=== PATIENT | male | born 1955 | race Caucasian/White ===

== ENCOUNTER 2018-01-19 11:10 | Outpatient (CLI) | payer MEDICAID, SELFPAY ==
[2018-01-19 12:53] LABS: Anion Gap 9.4 mmol/L (3-11); BUN 21 mg/dL (7-18); CO2 28.6 mmol/L (21.0-32.0); CREATININE 1.09 mg/dL (0.70-1.30); Calcium 9.2 mg/dL (8.5-10.1); Chloride 105 mmol/L (98-107); Glucose 101 mg/dL (70-100); Sodium 143 mmol/L (136-145); Uric Acid 8.4 mg/dL (3.5-7.2)
== END 2018-01-19 11:30 ==
PROVIDERS: PCP Emergency Medicine; Visit Provider Emergency Medicine
DX: I10 Essential (primary) hypertension (principal); M10.072 Idiopathic gout, left ankle and foot
CPT/HCPCS: 36415; 80048; 84550

== ENCOUNTER 2018-09-30 11:52 | Outpatient (CLI) | payer MEDICAID, SELFPAY ==
[2018-09-30 13:32] LABS: Anion Gap 12.5 mmol/L (3-11); BUN 34 mg/dL (7-18); CO2 24.5 mmol/L (21.0-32.0); CREATININE 1.46 mg/dL (0.70-1.30); Calcium 9.4 mg/dL (8.5-10.1); Chloride 105 mmol/L (98-107); Estimated GFR 48.92 (mL/min/1.73m2); Glucose 90 mg/dL (70-100); Potassium 3.6 mmol/L (3.5-5.1); Sodium 142 mmol/L (136-145); Uric Acid 6.6 mg/dL (3.5-7.2)
== END 2018-09-30 12:12 ==
PROVIDERS: PCP Emergency Medicine; Visit Provider Emergency Medicine
DX: M10.072 Idiopathic gout, left ankle and foot (principal); M10.9 Gout, unspecified; I10 Essential (primary) hypertension
CPT/HCPCS: 36415; 80048; 84550

== ENCOUNTER 2018-10-26 11:53 | Outpatient (CLI) | payer MEDICAID, SELFPAY ==
--- NOTE | 2018-10-26 11:00 | DI.RAD_ITS ---
SYMPTOMS/DIAGNOSIS: RT TOE PAIN, IDIOPATHIC GOUT RT FOOT, M10.072, M10.9 RIGHT GREAT TOE: Three views of the great toe were obtained. There is marked soft tissue swelling around the first MTP joint and there do appear to be some small periarticular erosions of the head of the first metatarsal consistent with gout. Soft tissue calcification is also present medial to the first MTP joint. No other significant bony abnormality is seen. CONCLUSION: Findings consistent with gout as described above.
[2018-10-26 12:36] LABS: Bilirubin Negative (Negative); Blood Trace-lysed (Negative); Clarity Clear (Clear); Glucose Negative (Negative); Ketones Negative (Negative); Leukocyte Esterase Negative (Negative); Nitrite Negative (Negative); Specific Gravity 1.015 (1.005-1.025); Urobilinogen 0.2 EU/dL (Up TO 0.2)
[2018-10-26 12:39] LABS: HCT 41.5 % (40.0-50.0); HGB 13.8 g/dL (13.5-17.5); Mean Corp. HGB Concentration 33.3 g/dL (32.0-36.0); Mean Corpuscular Hemoglobin 30.8 pg (27.0-33.0); Mean Corpuscular Volume 92.6 fL (80-95); Mean Platelet Volume 9.7 fL (8.0-11.0); Platelet Count 185 x1000/uL (130-400); RBC 4.48 m/cumm (4.50-6.00); RBC Distribution Width 14.8 % (11.8-14.1)
[2018-10-26 12:51] LABS: Epithelial Cells Rare HPF (Negative); RBC 0-2 (0-2); WBC Negative HPF (0-5)
[2018-10-26 12:52] LABS: Bacteria Negative HPF (Negative); C & S Indicated? No; Casts Negative LPF (Negative); Crystals Negative HPF (Negative); Mucus Trace (Negative)
[2018-10-26 13:04] LABS: Absolute Lymphocyte Count 66.17 k/cumm (1.2-3.4); Absolute Neutrophil Count 10.12 k/cumm (1.2-6.7); White Blood Cell Count 77.85 k/cumm (4.4-10.8)
[2018-10-26 13:05] LABS: Absolute Monocyte Count 1.56 k/cumm (0.11-0.7); Diff Comment Manual Differential; RBC Morphology Normal
[2018-10-26 13:32] LABS: Anion Gap 13.1 mmol/L (3-11); BUN 29 mg/dL (7-18); CO2 24.9 mmol/L (21.0-32.0); CREATININE 1.43 mg/dL (0.70-1.30); Calcium 9.4 mg/dL (8.5-10.1); Chloride 103 mmol/L (98-107); Estimated GFR 50.11 (mL/min/1.73m2); Glucose 100 mg/dL (70-100); Potassium 4.1 mmol/L (3.5-5.1); Sodium 141 mmol/L (136-145)
[2018-10-26 14:06] LABS: ESR 26 MM/HR (1-20)
[2018-10-26 19:56] LABS: Uric Acid 5.9 mg/dL (3.5-7.2)
== END 2018-10-26 12:13 ==
PROVIDERS: PCP Emergency Medicine; Visit Provider Emergency Medicine
DX: M10.9 Gout, unspecified; R30.0 Dysuria; I10 Essential (primary) hypertension; M10.072 Idiopathic gout, left ankle and foot; R53.83 Other fatigue; M79.674 Pain in right toe(s); M79.89 Other specified soft tissue disorders
CPT/HCPCS: 36415; 80048; 85652; 73660; 81003; 81015; 84550; 85025

== ENCOUNTER 2018-10-28 08:45 | Outpatient (CLI) | payer MEDICAID, SELFPAY ==
[2018-10-28 09:14] LABS: Abs Immature Grans 0.29 k/cumm (0.0-0.09); HCT 38.8 % (40.0-50.0); HGB 12.9 g/dL (13.5-17.5); Mean Corp. HGB Concentration 33.2 g/dL (32.0-36.0); Mean Corpuscular Hemoglobin 30.9 pg (27.0-33.0); Mean Corpuscular Volume 92.8 fL (80-95); Mean Platelet Volume 9.5 fL (8.0-11.0); RBC 4.18 m/cumm (4.50-6.00); RBC Distribution Width 14.4 % (11.8-14.1)
[2018-10-28 09:51] LABS: Absolute Neutrophil Count 12.49 k/cumm (1.2-6.7); Platelet Count 197 x1000/uL (130-400); White Blood Cell Count 78.09 k/cumm (4.4-10.8)
[2018-10-28 09:52] LABS: Absolute Lymphocyte Count 64.03 k/cumm (1.2-3.4); Absolute Monocyte Count 1.56 k/cumm (0.11-0.7); Diff Comment Manual Differential; RBC Morphology Normal
[2018-11-01 08:56] LABS: Leukemia/Lymphoma by FC (Blood See Comments
[2018-11-07 08:30] LABS: Interpretation See Comments
[2018-11-07 08:33] LABS: Test Performed See Comments
[2018-11-07 08:36] LABS: Comment See Comments
[2018-11-07 08:54] LABS: Karyotype See Comments
[2018-11-07 08:59] LABS: Report See Comments
== END 2018-10-28 09:05 ==
PROVIDERS: Family Medicine; PCP Emergency Medicine; Visit Provider Emergency Medicine
DX: D72.829 Elevated white blood cell count, unspecified (principal); C91.90 Lymphoid leukemia, unspecified not having achieved remission
CPT/HCPCS: 36415; 88185; 88237; 88271; 88275; 88291; 85025; 88184; 88189

== ENCOUNTER 2019-01-20 11:24 | Outpatient (CLI) | payer MEDICAID, SELFPAY ==
[2019-01-20 12:58] LABS: Anion Gap 13.4 mmol/L (3-11); BUN 24 mg/dL (7-18); CO2 22.6 mmol/L (21.0-32.0); CREATININE 1.29 mg/dL (0.70-1.30); Calcium 8.9 mg/dL (8.5-10.1); Chloride 106 mmol/L (98-107); Estimated GFR 56.44 (mL/min/1.73m2); Glucose 105 mg/dL (70-100); Sodium 142 mmol/L (136-145)
[2019-01-23 11:01] LABS: PSA, Screening 0.3 ng/ml (0-4.5)
== END 2019-01-20 11:44 ==
PROVIDERS: PCP Emergency Medicine; Visit Provider Emergency Medicine
DX: Z00.00 Encounter for general adult medical examination without abnormal findings (principal); Z12.5 Encounter for screening for malignant neoplasm of prostate
CPT/HCPCS: 36415; 80048; 84153

== ENCOUNTER 2020-02-02 22:11 | Outpatient (REF) | payer MEDICAID, SELFPAY ==
[2020-02-02 21:30] LABS: Anion Gap 8.4 mmol/L (3-11); BUN 18 mg/dL (7-18); CO2 25.6 mmol/L (21.0-32.0); Calcium 9.5 mg/dL (8.5-10.1); Calculated LDL 83 mg/dL (<100); Chloride 107 mmol/L (98-107); Cholesterol 152 mg/dL (<200); Glucose 88 mg/dL (74-106); HDL Cholesterol 21 mg/dL (40-60); Potassium 4.3 mmol/L (3.5-5.1); Sodium 141 mmol/L (136-145); Triglyceride 241 mg/dL (<150)
[2020-02-02 21:49] LABS: Uric Acid 4.4 mg/dL (3.5-7.2)
== END 2020-02-02 22:31 ==
LOC: LBN 22:11
PROVIDERS: PCP Emergency Medicine; Visit Provider Emergency Medicine
DX: E78.5 Hyperlipidemia, unspecified (principal); I10 Essential (primary) hypertension; M10.072 Idiopathic gout, left ankle and foot
CPT/HCPCS: 80048; 80061; 84550

== ENCOUNTER 2020-02-14 02:16 | Outpatient (CLI) | payer MEDICAID, SELFPAY ==
[2020-02-14 10:07] LABS: Abs Immature Grans 0.32 10^3/uL (0.0-0.06); Basophils % 0.1; Eosinophils % 0.1; HCT 40.7 % (40.0-50.0); HGB 13.1 g/dL (13.5-17.5); Immature Grans % 0.2; MCH 30.8 pg (27.0-33.0); MCHC 32.2 % (32.0-36.0); MCV 95.5 fL (80-95); MPV 9.6 fL (8.0-11.0); Monocytes % 2.1; Neutrophils % 1.9; Nucleated RBC 0 %; RBC 4.26 10^6/uL (4.36-5.78); RDW 14.6 % (11.8-14.1); RDW-SD 50.3 fL
[2020-02-14 11:13] LABS: Absolute Basophil Count 0.21 10^3/uL (0.0-0.2); Absolute Eosinophil Count 0.21 10^3/uL (0.0-0.7); Absolute Lymphocyte Count 201.95 10^3/uL (1.2-3.4); Absolute Monocyte Count 4.44 10^3/uL (0.1-0.8); Absolute Neutrophil Count 4.01 10^3/uL (1.2-6.7); WBC 211.24 10^3/uL (4.4-10.8)
[2020-02-14 11:14] LABS: Lymphocytes % 95.6; Platelet Count 104 10^3/uL (130-400)
[2020-02-14 11:15] LABS: Diff Comment Agrees w/ Instrument; RBC Morphology Normal
== END 2020-02-14 02:36 ==
PROVIDERS: PCP Emergency Medicine; Visit Provider Internal Medicine
DX: C91.10 Chronic lymphocytic leukemia of B-cell type not having achieved remission (principal)
CPT/HCPCS: 36415; 85025

== ENCOUNTER 2020-03-17 13:15 | Emergency (ER) | payer MEDICAID, SELFPAY ==
[2020-03-17] VITALS (51 sets, daily range): BP systolic 80–118; BP diastolic 58–73; PULSE 71–127; RESP 18–34; TEMP 36.3–36.7; O2SAT 93–98
--- NOTE | 2020-03-17 13:15 | RT.EKG_ITS ---
APPROVED REPORT Exam: Resting ECG Patient Location: E HR:105 bpm ECG Measurements Heart Rate 105 AXIS MT 134 P 59 QRSd 79 QRS 62 QT 360 T -3 QTc 478 Conclusion Sinus tachycardia...rate> 99 Probable left atrial enlargement...P >50mS, <-0.10mV V1 I have reviewed and interpreted ECG and agree with software generated interpretation. No STEMI
--- NOTE | 2020-03-17 13:36 | ED.GENADUL_ITS ---
Discharge Plan Disposition Patient Disposition: [facility] Condition: Serious Discharge Details Clinical Impression: Splenic hemorrhage Primary Care Provider: Brandon Acosta ED Provider: Bret Campos Home Meds and New Rx's Prescriptions: No Action allopurinol 300 mg tablet 300 mg PO DAILY Qty: 90 RF: 3 colchicine 0.6 mg tablet 0.6 mg PO BID PRNRF: 0 amlodipine 5 mg tablet 5 mg PO DAILY Qty: 90 RF: 3 sucralfate [Carafate] 100 mg/mL suspension 5 ml PO PRN Qty: 420 RF: 3 pravastatin 10 mg tablet 10 mg PO DAILY Qty: 90 RF: 4 lisinopril 10 mg tablet 10 mg PO DAILY Qty: 90 RF: 4 nystatin 100,000 unit/mL Suspension 5 ml PO QID RF: 0 famciclovir 500 mg tablet 1 mg PO DAILY RF: 0 ibuprofen 400 mg Tablet 400 mg PO PRN PRNRF: 0 acetaminophen [Tylenol] 325 mg Tablet 1,000 mg PO PRN PRNRF: 0 Discharge Data Discharge Date/Time-TO BE ENTERED AT DEPARTURE: 03/17/20 19:40 Medical Decision Making <Ana Maria Craven - Last Filed: 03/20/20 08:25> 65-year-old male presents to the ER with chief complaint of mouth pain, abdominal fullness and groin tenderness. He has a history of CLL and has recently stopped chemotherapy treatment due to mouth sores. He has been feeling dizzy which prompted him to be seen in the ER. On initial exam he appears weak, pale blood pressure is low, he does have ecchymosis and swelling noted to the scrotum back. He denies any diarrhea or problems urinating. Denies any chest pain or shortness of breath. He has a past medical history of CLL, depression, inguinal hernia repair, idiopathic gout, hypertension, hyperlipidemia. He is alert and oriented x4. 1305: Clinical result received verbally from lab WBC count is 319.25 unable to report RBCs at this time, hemoglobin 9.4 and platelets of 141, absolute neutrophils 10.85, absolute lymphocytes 304.25, absolute monocytes 3.19 lactate 1.6, sodium 139, potassium 4.8, and anion gap 10.8, BUN 19, creatinine 1.0, GFR 38.18, glucose 204, troponin is pending at this time. Urinalysis is pending at this time Patient's oncologist at [facility] is Sadia Johansen or Jacquelyn Stevens will retrieve documents from [facility] medical records. 1434: PT changed to oral contrast only due to elevated BUN and creatinine and GFR 38 less than 40. Patient is receiving 1 L normal saline, blood pressure at this time is 88/60 ultrasound of scrotum is pending at this time will be done in approximately 1 hour. Care is to be handed off to oncoming provider ZAC Goldberg, discussed patient case in detail and pending labs, scrotal ultrasound, and CT at this time. Medical Records Medical records reviewed: Yes I reviewed the patient's medical records. Medical records narrative: [facility] records reviewed from 03/12/2020 which show a office visit with Jacquelyn Stevens APRN, the majority of the visit notes are addressing his oral lesions which are causing terrible pain, he was started on nystatin and Famvir 5 mg twice daily and then to start acyclovir 40 mg twice daily. Is also given oxycodone 5 mg tablets at that time. Additional records reviewed for a visit with Sadia Johansen MD on February 28, 2020 <ZAC Knutson - Last Filed: 03/17/20 18:45> This is a 65-year-old gentleman with a past medical history of CLL, hypertension, gout, who was signed out to me by my colleague LAURA Craven pending scrotal ultrasound, abdominal and pelvic CT with oral contrast, urinalysis, repeat troponin. Please see her initial HPI and examination. Patient was brought to ultrasound prior to me being able to physically evaluate him at shift change. I was called by ultrasound requesting a antiemetic as the patient was becoming nauseous during his scrotal ultrasound. 4 mg Zofran IV given. Thus far he has been unable to provide a urine sample, he did present tachycardic and hypotensive, I will provide him with a second liter IV fluid. I evaluated the patient once he returned from radiology. Blood pressure now 108/60, pulse in the 70s, respirations 23. He has certainly responded well to the IV fluid. Upon the patient returning from radiology he appears well, nontoxic. Patient has diffuse mild abdominal discomfort, slightly worse on the left side. There is no guarding, rebound or rigidity. Bowel sounds are normal. Back nontender, normal visual examination. Lungs clear to auscultation, heart regular rate and rhythm. The scrotum reveals diffuse ecchymosis, minimal swelling, nontender. No skin lesions. Patient still unable to provide a urine sample. Patient will be given a 3rd L of fluid, now lactated Ringer's. I received a call from virtual radiology regarding his imaging. Chest x-ray shows no acute cardiopulmonary process. The CT imaging reveals a marked splenomegaly with heterogeneous parenchymal density and perisplenic blood tracking into the pelvis. Mild perihepatic ascites and a combination of fluid tracks in the right inguinal hernia into the scrotum. Scrotal wall edema with right scrotal hematocele. Mild pelvic lymphadenopathy. Small bilateral aspirations in the visualized lung base, left greater than right. Scrotal ultrasound shows increased blood flow to both testicular parenchyma suggestive of epididymal orchitis given the recent CT findings of CLL related splenomegaly and hemoperitoneum, the constellation of findings in the right scrotum reflect abdominal fat containing right inguinal hernia with migration of fat and blood- ascites into the right hemiscrotum, and less likely represents infectious or vascular cause of hyperemia. No evidence of torsion. Incidental bilateral small epididymal head cyst and left varicocele. Given the CT findings, I did add on coag studies, type and cross, and I had a call placed out to our surgical team, Dr. Clarke. In the meantime we did establish a second large-bore IV. I was able to speak with Dr. Clarke who felt as though given the patient has CLL, is followed at [facility], he is likely better served being transferred to a higher level of care. Called with him placed out to [facility]. I discussed the case with Dr. Ledesma, surgery. He is happy to accept care at the patient and recommend an ER to ER transfer. I did let him know that the labs were pending, the type and screen were pending, and we would initiate irradiated packed red blood cells as soon as we could. Upon reviewing his labs, his hemoglobin was 11.7 on 03-06, now at 9.3. Given he has had a drop in his hemoglobin of over 2 points, has an active bleed, will initiate blood products. I did obtain verbal consent to give patient packed blood cells. Patient appears more stable than when he presented although his blood pressure does remain soft. He is becoming increasingly anxious, he will be given 1 mg IV Ativan. All appropriate transfer paperwork completed. I did speak with the patient's daughter regarding his diagnosis and need for transfer. Medical Records Medical records reviewed: Yes I reviewed the patient's medical records. Lab Data Lab results reviewed: Yes I reviewed the patient's lab results. Lab results narrative: Laboratory Tests Range/Units 03/17/20 03/17/20 03/17/20 13:40 13:40 13:40 WBC (4.4-10.8) 10^3/uL 319.25 H* RBC (4.36-5.78) 10^6/uL Hgb (13.5-17.5) g/dL 9.3 L Hct Not Applicable MCV Not Applicable MCH Not Applicable MCHC Not Applicable RDW Not Applicable Plt Count (130-400) 10^3/uL 138 MPV (8.0-11.0) fL 9.8 Immature Gran % 0.3 Neutrophils % 3.4 Lymphocytes % 95.3 Monocytes % 1.0 Eosinophils % 0.0 Basophils % 0.0 Nucleated RBC % % 0 Absolute Neutrophils (1.2-6.7) 10^3/uL 10.85 H Absolute Lymphocytes (1.2-3.4) 10^3/uL 304.25 H Absolute Monocytes (0.1-0.8) 10^3/uL 3.19 H Absolute Eosinophils (0.0-0.7) 10^3/uL 0.00 Absolute Basophils (0.0-0.2) 10^3/uL 0.00 RBC Morphology See below Hypochromasia 2+ Anisocytosis 2+ PT (9.3-11.0) sec INR (0.9-1.1) APTT VBG Lactate (0.6-1.4) mmol/L 1.6 H Sodium (136-145) mmol/L 139 Potassium (3.5-5.1) mmol/L 4.8 Chloride (98-107) mmol/L 105 Carbon Dioxide (21.0-32.0) mmol/L 23.2 Anion Gap (3-11) mmol/L 10.8 BUN (7-18) mg/dL 19 H Creatinine (0.70-1.30) mg/dL 1.80 H Estimated GFR/1.73 m2 (mL/min/1.73m2) 38.18 Glucose (74-106) mg/dL 204 H Calcium (8.5-10.1) mg/dL 8.6 Magnesium (1.8-2.4) mg/dL 1.8 Total Bilirubin (0.2-1.0) mg/dL 0.9 AST (15-37) U/L 41 H ALT (16-63) U/L 21 Alkaline Phosphatase (46-116) U/L 99 Troponin I (<0.06) ng/mL < 0.05 Total Protein (6.4-8.2) g/dL 6.6 Albumin (3.4-5.0) g/dL 3.6 Crossmatch Range/Units 03/17/20 03/17/20 03/17/20 13:40 16:35 18:05 WBC (4.4-10.8) 10^3/uL RBC (4.36-5.78) 10^6/uL Hgb (13.5-17.5) g/dL Hct MCV MCH MCHC RDW Plt Count (130-400) 10^3/uL MPV (8.0-11.0) fL Immature Gran % Neutrophils % Lymphocytes % Monocytes % Eosinophils % Basophils % Nucleated RBC % % Absolute Neutrophils (1.2-6.7) 10^3/uL Absolute Lymphocytes (1.2-3.4) 10^3/uL Absolute Monocytes (0.1-0.8) 10^3/uL Absolute Eosinophils (0.0-0.7) 10^3/uL Absolute Basophils (0.0-0.2) 10^3/uL RBC Morphology Hypochromasia Anisocytosis PT (9.3-11.0) sec 10.3 INR (0.9-1.1) 1.0 APTT Cancelled VBG Lactate (0.6-1.4) mmol/L Sodium (136-145) mmol/L Potassium (3.5-5.1) mmol/L Chloride (98-107) mmol/L Carbon Dioxide (21.0-32.0) mmol/L Anion Gap (3-11) mmol/L BUN (7-18) mg/dL Creatinine (0.70-1.30) mg/dL Estimated GFR/1.73 m2 (mL/min/1.73m2) Glucose (74-106) mg/dL Calcium (8.5-10.1) mg/dL Magnesium (1.8-2.4) mg/dL Total Bilirubin (0.2-1.0) mg/dL AST (15-37) U/L ALT (16-63) U/L Alkaline Phosphatase (46-116) U/L Troponin I (<0.06) ng/mL Cancelled Total Protein (6.4-8.2) g/dL Albumin (3.4-5.0) g/dL Crossmatch See Detail HPI <Ana Maria Craven - Last Filed: 03/20/20 08:25> General Mode of arrival: wheelchair . Date/Time Provider Initiated Documentation: 03/17/20 13:16 . Limitations to Documentation: no limitations . Information obtained by: patient . HPI Narrative: 65-year-old male presents to the ER with chief complaint of mouth pain, abdominal fullness and groin tenderness. He has a history of CLL and has recently stopped chemotherapy treatment due to mouth sores. He has been feeling dizzy which prompted him to be seen in the ER. On initial exam he appears weak, pale blood pressure is low, he does have ecchymosis and swelling noted to the scrotum back. He denies any diarrhea or problems urinating. Denies any chest pain or shortness of breath. He has a past medical history of CLL, depression, inguinal hernia repair, idiopathic gout, hypertension, hyperlipidemia. He is alert and oriented x4. Related Data Home Medications Medication Instructions Recorded Confirmed allopurinol 300 mg tablet 300 mg PO DAILY #90 tab 09/01/19 03/17/20 pravastatin 10 mg tablet 10 mg PO DAILY #90 tab-cap 09/11/19 03/17/20 lisinopril 10 mg tablet 10 mg PO DAILY #90 tab-cap 10/04/19 03/17/20 amlodipine 5 mg tablet 5 mg PO DAILY #90 tab 11/29/19 03/17/20 sucralfate 100 mg/mL oral 5 ml PO PRN #420 ml 11/29/19 03/17/20 suspension colchicine 0.6 mg tablet 0.6 mg PO BID PRN tab 02/02/20 03/17/20 acetaminophen [Tylenol] 1,000 mg PO PRN PRN 03/17/20 03/17/20 famciclovir 1 mg PO DAILY 03/17/20 03/17/20 ibuprofen 400 mg PO PRN PRN 03/17/20 03/17/20 nystatin 5 ml PO QID 03/17/20 03/17/20 Previous Rx's Medication Instructions Recorded allopurinol 300 mg tablet 300 mg PO DAILY #90 tab 09/01/19 pravastatin 10 mg tablet 10 mg PO DAILY #90 tab-cap 09/11/19 lisinopril 10 mg tablet 10 mg PO DAILY #90 tab-cap 10/04/19 amlodipine 5 mg tablet 5 mg PO DAILY #90 tab 11/29/19 sucralfate 100 mg/mL oral 5 ml PO PRN #420 ml 11/29/19 suspension Allergies Allergy/AdvReac Type Severity Reaction Status Date / Time No Known Allergies Allergy Verified 03/17/20 13:34 General Stated Complaint: Dizzy/Sync LAMONTE: 2 Review of Systems <Ana Maria Craven - Last Filed: 03/20/20 08:25> Narrative: Constitutional: Negative for weight loss, alert and oriented, well groomed, normal body habitus, appears comfortable. HEENT: Denies trauma, headaches, blurry vision, nasal discharge, sore throat, trouble swallowing. Chest: Denies chest pain, palpitations, irregular rhythm, hypertension. Respiratory: Denies Shortness of breath, cough, hemoptysis. GI: Denies abdominal pain, nausea, vomiting, diarrhea, constipation. : Denies dysuria, hematuria, flank pain, rectal bleeding. Neuro: Denies dizziness, blurry vision, weakness, syncope, headache or facial numbness. Hematologic: Denies easy bruising, intolerance to heat or cold, hair loss. [facility] <Ana Maria Craven - Last Filed: 03/20/20 08:25> Medical History Colonoscopy refused Surgical History Repair of inguinal hernia left Family History Father , age71 Essential hypertension Heart disease Myocardial infarction Mother , 99 No problems noted. Sister No problems noted. Brother No problems noted. Sister No problems noted. Brother No problems noted. Daughter No problems noted. Daughter No problems noted. Maternal Grandfather No problems noted. Paternal Grandfather No problems noted. Maternal Grandmother No problems noted. Paternal Grandmother No problems noted. Social History Smoking/Tobacco Use Status: Never Smoking risk assessment performed?: Yes Alcohol Intake: never Drug use: Never Substance use type: does not use Caregiver/Support person: No Household members: none Housing: house Communication Needs: None Do you need help understanding health information?: Rarely Sexually active: No Do you think of yourself as: straight/heterosexual Current gender identity: male What is your relationship status?: How often do you talk on the phone with friends or family?: three or more times per week How often do you get together with friends or relatives?: three or more times per week How often do you attend faith or uatsdin services?: 1-3 times per year Do you belong to any clubs or organized social groups?: no Panel score (0-1 are the most socially isolated patients): 1 What type of physical activity do you participate in: bicycling Duration: 45-60 minutes/day Frequency: 5-6 times per week Adina/Sikhism: Rastafari Special adina needs: No Seatbelt use: always Helmet use: Yes Helmet use: always Drive intox or ride w/intox bulk delivery driver: No Do you feel safe at home: Yes Do you feel safe in your relationship?: Yes Exam <Ana Maria Craven - Last Filed: 03/20/20 08:25> Narrative Exam Narrative: Constitutional: Alert and oriented x3. Appears stated age. Normal body habitus. Head: Normocephalic, no trauma. Eyes: Pupils PERRLA, Red reflex noted, EOM's intact. Eyelids symmetrical without lesions, discharge, or swelling. ENT: Bilateral TM's WNL, External ear normal to inspection, no mastoid TTP, swelling, or erythema, Nasal turbinates WNL, no nasal discharge. Normal dentition, Posterior pharynx WNL, no exudate. Chest: RRR, Normal S1, S2, distal pulses intact. Hypotensive at a 80/63. Tachycardic at 123. Resp: Lungs clear to auscultation bilaterally, no wheezes, rales, or rhonchi. GI: Soft nondistended nontender to palpation all 4 quadrants. : Swollen scrotum noted with ecchymosis denies any recent injuries or trauma. Musculoskeletal: Normal gait, 5/5 strength to all four extremities. Skin: No suspicious rashes or lesions. Capillary refill less than 2 sec. Neurologic: Cranial nerves II-XII intact. Alert and oriented x 3. DTR's intact. Hematologic/Lymphatic: No ecchymosis, no lymphadenopathy. Course <Ana Maria Craven - Last Filed: 03/20/20 08:25> Vital Signs Vital signs: Vital Signs Temperature 36.3 C L 03/17/20 13:25 Pulse 123 H 03/17/20 13:25 Blood Pressure 80/63 L 03/17/20 13:25 Pulse Oximetry 95 03/17/20 13:25 Temperature 36.3 C L 03/17/20 13:25 Pulse 123 H 03/17/20 13:25 Respiratory Effort 03/17/20 13:32 Blood Pressure 80/63 L 03/17/20 13:25 Blood Pressure Position Sitting 03/17/20 13:25 Pulse Oximetry 95 03/17/20 13:25 Oxygen Delivery Method Room Air 03/17/20 13:25 Oxygen Flow Rate 0 03/17/20 13:25 <ZAC Knutson - Last Filed: 03/17/20 18:45> Critical Care Time Critical Care Time: Yes Total Critical Care Time: 45 Attestation: Upon my evaluation, this patient had a high probability of clini daryl significant, life-threatening deterioration due to their current medical conditions, which required my direct attention, intervention, and personal management. I have personally provided greater than 30 minutes of critical care time exclusive of the time spend on separately billable procedures. Time includes obtaining a history, examining the patient, pulse oximetry, review of laboratory data, radiology results, discussion with consultants, arranging urgent treatment with development of a management plan, evaluation of patient's response to treatment, and monitoring for potential decompensation. Interventions were performed as documented above. Sign Out <Ana Maria Craven - Last Filed: 03/20/20 08:25> Sign Out Data: Sign Out Comment: Pending US scrotum, CT abd/pelvis, Chest Xray results. May need consult with oncology. Last updated by Ana Maria Craven at 03/17/20 15:32
[2020-03-17] MEDS: Normal Saline 1,000 ML 1000 ML IV ×2 (13:40→16:08)
--- NOTE | 2020-03-17 13:45 | DI.US_ITS ---
EXAM: US SCROTUM CLINICAL HISTORY: Swelling, ecchymosis. TECHNIQUE: Scrotal ultrasound performed using grayscale, color-flow and spectral Doppler analysis. COMPARISON: No exams were available for comparison FINDINGS: Right testicle: 3.3 x 2.3 x 2.7 cm Echogenicity: Normal. Contour: Smooth. Mass: None seen. Microlithiasis: None. Hydrocele: There is a large right hydrocele measuring 3.2 x 1.8 x 2.0 cm. There is swelling and gagan a in the right scrotal wall. There is a fat containing right inguinal hernia. Variocele: None. Hernia: No peristalsing bowel loop identified. Epididymis: 0.4 x 0.2 x 0.3 cm right epididymal head cyst. Left testicle: 2.5 x 1.4 x 2.2 cm Echogenicity: Normal. Contour: Smooth. Mass: None seen. Microlithiasis: None. Hydrocele: None. Variocele: Small left varicocele. Hernia: No peristalsing bowel loop identified. Epididymis: 0.4 x 0.2 x 0.3 cm simple epididymal head cyst. DOPPLER: Color: Increased blood flow to both testicles suggesting epididymal orchitis. Duplex: Bilateral testicular arterial waveforms visualized. IMPRESSION: 1. Increased bilateral testicular blood flow suggesting epididymal orchitis. 2. Edema and swelling in the right scrotal soft tissues with a fat and fluid containing right inguina l hernia. DATA REPOSITORY:
[2020-03-17 13:53] LABS: Lactate 1.6 mmol/L (0.6-1.4)
[2020-03-17 13:55] LABS: Abs Immature Grans 1.07 10^3/uL (0.0-0.06); HGB 9.3 g/dL (13.5-17.5); Immature Grans % 0.3; MPV 9.8 fL (8.0-11.0); Neutrophils % 3.4; Nucleated RBC 0 %; Platelet Count 138 10^3/uL (130-400)
[2020-03-17 14:12] LABS: ALT 21 U/L (16-63); AST 41 U/L (15-37); Albumin 3.6 g/dL (3.4-5.0); Alkaline Phosphatase 99 U/L (46-116); Anion Gap 10.8 mmol/L (3-11); BUN 19 mg/dL (7-18); Bilirubin, Total 0.9 mg/dL (0.2-1.0); CO2 23.2 mmol/L (21.0-32.0); Calcium 8.6 mg/dL (8.5-10.1); Chloride 105 mmol/L (98-107); Estimated GFR 38.18 (mL/min/1.73m2); Glucose 204 mg/dL (74-106); Magnesium 1.8 mg/dL (1.8-2.4); Potassium 4.8 mmol/L (3.5-5.1); Sodium 139 mmol/L (136-145); Total Protein 6.6 g/dL (6.4-8.2)
[2020-03-17 14:13] LABS: Troponin I < 0.05 ng/mL (<0.06)
[2020-03-17 14:27] LABS: Absolute Monocyte Count 3.19 10^3/uL (0.1-0.8); Absolute Neutrophil Count 10.85 10^3/uL (1.2-6.7); WBC 319.25 10^3/uL (4.4-10.8)
[2020-03-17 14:30] LABS: Lymphocytes % 95.3
--- NOTE | 2020-03-17 14:30 | DI.CT_ITS ---
EXAM: CT ABDOMEN PELVIS WO CLINICAL HISTORY: Abdominal fullness,. TECHNIQUE: Imaging Protocol: Axial computed tomography images with coronal and sagittal reformatted images were created and reviewed. COMPARISON: No exams were available for comparison FINDINGS: ABDOMEN: Lung Bases: Bilateral basilar infiltrates and tiny right pleural effusion. Small hiatal hernia. Liver: Normal density. No measurable mass. Gallbladder and biliary tract: No radiodense calculus or biliary ductal dilation. Pancreas: Normal density, no abnormal calcifications or inflammatory process. Spleen: The spleen measures 21.8 cm. Kidneys: Normal size, contour and axis.No radiodense stones or obstructive uropathy. No masses seen. Adrenal glands: No mass is seen. Lymph nodes: Bilateral enlarged external iliac and inguinal lymph nodes. The largest is on the right and measures 1.3 cm. Abdominal Aorta: Abdominal portion non-dilated. PELVIS: Bladder:Symmetric distention, no gross wall thickening. Bowel: No obstruction or bowel wall thickening. No evidence of acute appendicitis. Colonic diverticu losis but no evidence of acute diverticulitis. Peritoneal cavity: Small amount of abdominal pelvic ascites. Reproductive organs: Within normal limits. Bones: Degenerative changes in the spine. Left L5 spondylolysis but no significant spondylolisthesis . Soft Tissues: There is a fat and fluid containing right inguinal hernia into the scrotum. There is e amilcar seen in the soft tissues of the scrotum. IMPRESSION: 1. Marked splenomegaly. 2. Abdominal and pelvic ascites which tracks into the right scrotum. There is a fat and fluid contai qian right inguinal hernia extending into the scrotal sac. 3. There is scrotal wall edema and right scrotal him at a seal. 4. Mild pelvic lymphadenopathy. 5. Bilateral basilar infiltrates left greater than right and small left pleural effusion. RADIATION DOSE DELIVERED: 1,291.29mGy.cm Total DLP DATA REPOSITORY: All CT scans at this facility are submitted to the National Radiology Data Registry (NRDR) Dose Index Registry (DIR) with the [employer] (ACR). RADIATION OPTIMIZATION: All CT scans at this facility use at least one of these dose optimization te chniques: automated exposure control; mA and/or kV adjustment per patient size (includes targeted exa ms where dose is matched to clinical indication); or iterative reconstruction.
[2020-03-17 14:31] LABS: Anisocytosis 2+; Diff Comment Agrees w/ Instrument; Hypochromasia 2+
[2020-03-17] MEDS: Omnipaque 350 MG/ML 50 ML BTL IJ (15:14)
[2020-03-17] MEDS: Ondansetron 4 MG/2 ML VIAL IVP (16:45)
--- NOTE | 2020-03-17 17:19 | DI.RAD_ITS ---
EXAM: XR CHEST 2V PA LATERAL CLINICAL HISTORY: Dizzy TECHNIQUE: 2D digital imaging was performed. COMPARISON: No exams were available for comparison FINDINGS: MEDIASTINUM: Normal. HEART: Normal. PULMONARY VASCULATURE: Normal. LUNGS: Clear. PLEURAL SPACE: No pleural effusion or pneumothorax. BONE:Within normal limits for the patient's age. OTHER FINDINGS:Splenomegaly. IMPRESSION: 1. No acute pulmonary findings. 2. Splenomegaly. DATA REPOSITORY: RADIATION DOSE DELIVERED:
--- NOTE | 2020-03-17 17:32 | DI.VRAD_ITS ---
PROCEDURE INFORMATION: Exam: CT Abdomen And Pelvis Without Contrast Exam date and time: 03/17/2020 5:06 PM Age: 65 years old Clinical indication: Bloating TECHNIQUE: Imaging protocol: Computed tomography of the abdomen and pelvis without contrast. COMPARISON: Scrotal ultrasound of 03/17/2020. FINDINGS: Lungs: Small bilateral lower lobe consolidations, left greater than right suggestive of aspirations. Mediastinal space: Small hiatal hernia. Liver: Normal. No mass. Gallbladder and bile ducts: Normal. No calcified stones. No ductal dilation. Pancreas: Normal. No ductal dilation. Spleen: Markedly enlarged spleen measuring 21.5 cm. Heterogeneous internal hypodensities with some areas of hyperdensity suggestive of infarct and/or hemorrhage. Small volume perihepatic and perisplenic ascites. The density of the perisplenic ascites reflects hemorrhage. Fluid tracks minimally into the pelvis along with the left perihepatic ascites. Adrenal glands: Normal. No mass. Kidneys and ureters: Normal. No hydronephrosis. Stomach and bowel: Sigmoid diverticula without evidence of acute diverticulitis. Appendix: No evidence of appendicitis. Intraperitoneal space: Mild left hemoperitoneum. Vasculature: Unremarkable. No abdominal aortic aneurysm. Lymph nodes: No retroperitoneal lymphadenopathy. However, there are multiple enlarged pelvic lymph nodes. For example, right external iliac lymphadenopathy measures 1.2 cm near the right medial acetabulum on series 2, image 76. Larger right anterior external lymphadenopathy measures 1.3 cm on image 78. Urinary bladder: Unremarkable as visualized. Reproductive: Unremarkable as visualized. Bones/joints: Unremarkable. No acute fracture. Soft tissues: Small bilateral inguinal hernias, right greater than left with dense fluid tracking into the scrotum. IMPRESSION: 1. Marked splenomegaly with heterogeneous parenchymal density and perisplenic blood tracking into the pelvis. Mild perihepatic ascites and a combination of fluid tracks to the right inguinal hernia into the scrotum. Scrotal wall edema with right scrotal hematocele. 2. Mild pelvic lymphadenopathy. 3. Small bilateral aspirations in the visualized lung bases, left greater than right. The study was personally discussed on the telephone with Bret Campos PA-C, on 03/17/2020 5:29 PM EST. The results were understood and acknowledged. Dictated and Authenticated by: Rubio Gonzales MD. Ordering:AMARILIS Rodgers MD
--- NOTE | 2020-03-17 17:42 | DI.VRAD_ITS ---
PROCEDURE INFORMATION: Exam: US Scrotum Exam date and time: 03/17/2020 5:03 PM Age: 65 years old Clinical indication: Swelling, testicles or scrotum; Scrotum pain; Patient HX: PT was dx w/ leukemia. PT diagnosed with cll TECHNIQUE: Imaging protocol: Real-time ultrasound of the scrotum and contents with color Doppler and image documentation. COMPARISON: Noncontrast CT abdomen and pelvis of 03/17/2020. FINDINGS: Right testicle: The right testicle measures 3.3 x 2.3 x 2.7 cm. Small adjacent epididymal cyst measuring 7 x 7 mm. Left testicle: The left testicle measures 2.5 x 1.4 x 2.2 cm. Increased vascular flow to the bilateral testicular parenchyma suggestive of epididymo-orchitis. Epididymides: Right epididymis measures 1.2 x 1.0 x 0.8 cm. Right epididymal head cyst measuring 3 x 4 x 2 mm. Left epididymis measures 0.9 x 0.8 x 0.8 cm. Incidental small left epididymal head cyst measuring 3 mm x 4 mm x 2 mm. Scrotum: Large right hydrocele measuring 3.2 x 1.8 x 2.0 cm. Right scrotal wall swelling and edema. Fat containing inguinal hernia with echogenic fat within the right scrotum. Incidental small left varicocele. IMPRESSION: 1. Increased blood flow to both testicular parenchyma suggestive of epididymo-orchitis. Given the recent CT findings of CLL related splenomegaly and hemoperitoneum, the constellation of findings in the right scrotum reflect abdominal fat containing right inguinal hernia with migration of fat and blood/ascites into the right hemiscrotum, and less likely represents infectious or vascular cause of hyperemia. 2. No evidence for torsion. 3. Incidental bilateral small epididymal head cysts and left varicocele. Dictated and Authenticated by: Rubio Gonzales MD. Ordering:AMARILIS Rodgers MD
--- NOTE | 2020-03-17 17:51 | DI.VRAD_ITS ---
PROCEDURE INFORMATION: Exam: XR Chest, 2 Views Exam date and time: 03/17/2020 5:20 PM Age: 65 years old Clinical indication: Other: Dizziness TECHNIQUE: Imaging protocol: XR of the chest Views: 2 views. COMPARISON: CT abdomen pelvis of 03/17/2020. FINDINGS: Lungs: The lungs are clear without opacity or suspicious parenchymal finding. Pleural space: Unremarkable. No pleural effusion. No pneumothorax. Heart/Mediastinum: Unremarkable. No cardiomegaly. Bones/joints: Unremarkable. Gastrointestinal tract: Splenomegaly with shift of the splenic flexure of the colon to near midline. IMPRESSION: 1. No acute cardiopulmonary process. 2. Splenomegaly. Please refer to separate CT abdomen pelvis report of the same day. Dictated and Authenticated by: Rubio Gonzales MD. Ordering:AMARILIS Rodgers MD
[2020-03-17] MEDS: Lactated Ringers 1,000 ML 1000 ML IV (18:30)
[2020-03-17 18:33] LABS: Prothrombin Time 10.3 sec (9.3-11.0)
[2020-03-17] MEDS: Magic Mouthwash 119 ML BTL MM (18:47)
[2020-03-17] MEDS: LORazepam 2 MG/ML VIAL 1 MG IVP (18:51)
[2020-03-17 19:53] LABS: Bilirubin Negative (Negative); Blood Large (Negative); Clarity Cloudy (Clear); Glucose Negative (Negative); Ketones 15 mg/dL (Negative); Leukocyte Esterase Negative (Negative); Nitrite Negative (Negative); Specific Gravity >= 1.030 (1.005-1.025); Urobilinogen 0.2 EU/dL (Up TO 0.2); pH 5.5 (5-8)
[2020-03-17 20:09] LABS: Bacteria Negative HPF (Negative); C & S Indicated? No; Casts 20-50 Hyaline LPF (Negative); Crystals Few Amorphous HPF (Negative); Epithelial Cells Negative HPF (Negative); Mucus Moderate (Negative); RBC >50 HPF (0-2)
== END 2020-03-17 19:40 | disposition short-term general hospital (02) ==
PROVIDERS: Registered Nurse Emergency; Emergency Provider Physician Assistant; PCP Emergency Medicine
DX: D73.5 Infarction of spleen (principal); K13.79 Other lesions of oral mucosa; C91.10 Chronic lymphocytic leukemia of B-cell type not having achieved remission; Z79.899 Other long term (current) drug therapy; N50.89 Other specified disorders of the male genital organs; R10.12 Left upper quadrant pain; R93.5 Abnormal findings on diagnostic imaging of other abdominal regions, including retroperitoneum; I10 Essential (primary) hypertension
CPT/HCPCS: 36415; 36430; 51703; 80053; 86850; 86900; 86901; 86920; 86945; 93005; 96361; 96374; 96375; 99291; 71046; 74176; 76870; 81003; 81015; 83605; 83735; 84484; 85025; 85610; 85730; 93010; J2060; J2405; P9016; Q9967

== ENCOUNTER 2020-03-27 01:25 | Outpatient (RCR) | payer MEDICAID, SELFPAY ==
[2020-03-06 11:35] LABS: HGB 11.7 g/dL (13.5-17.5); MPV 9.4 fL (8.0-11.0); Nucleated RBC 0 %
[2020-03-06 12:16] LABS: Absolute Neutrophil Count 5.41 10^3/uL (1.2-6.7)
[2020-03-06 12:22] LABS: Platelet Count 128 10^3/uL (130-400)
[2020-03-06 12:23] LABS: Anisocytosis 3+; Diff Comment Manual Differential; Macrocytosis 3+; Microcytosis 1+
[2020-03-06 12:24] LABS: Poikilocytes 2+
[2020-03-06 12:29] LABS: ALT 16 U/L (16-63); AST 25 U/L (15-37); Albumin 4.5 g/dL (3.4-5.0); Alkaline Phosphatase 125 U/L (46-116); BUN 23 mg/dL (7-18); Bilirubin, Total 2.4 mg/dL (0.2-1.0); CREATININE 1.33 mg/dL (0.70-1.30); Chloride 105 mmol/L (98-107); Estimated GFR 54.13 (mL/min/1.73m2); Glucose 95 mg/dL (74-106); Potassium 4.6 mmol/L (3.5-5.1); Sodium 139 mmol/L (136-145); Total Protein 7.7 g/dL (6.4-8.2)
[2020-03-06 12:41] LABS: Uric Acid 5.6 mg/dL (3.5-7.2)
[2020-03-06] MEDS: Normal Saline 1,000 ML 500 ML IV (12:45)
[2020-03-06] MEDS: Normal Saline Flush 10 ML SYR IVP (14:59)
[2020-03-27 12:12] LABS: Abs Immature Grans 0.79 10^3/uL (0.0-0.06); Basophils % 0.1; Eosinophils % 0.2; HGB 9.3 g/dL (13.5-17.5); Immature Grans % 0.6; MCH 29.4 pg (27.0-33.0); MCV 98.1 fL (80-95); MPV 8.9 fL (8.0-11.0); Monocytes % 1.5; Neutrophils % 10.9; Nucleated RBC 0 %; RBC 3.16 10^6/uL (4.36-5.78); RDW 14.8 % (11.8-14.1); RDW-SD 51.3 fL
[2020-03-27 12:22] LABS: ALT 71 U/L (16-63); AST 67 U/L (15-37); Albumin 2.9 g/dL (3.4-5.0); Alkaline Phosphatase 164 U/L (46-116); Anion Gap 8.5 mmol/L (3-11); BUN 18 mg/dL (7-18); Bilirubin, Total 1.5 mg/dL (0.2-1.0); CO2 22.5 mmol/L (21.0-32.0); CREATININE 1.03 mg/dL (0.70-1.30); Calcium 8.8 mg/dL (8.5-10.1); Chloride 107 mmol/L (98-107); Glucose 101 mg/dL (74-106); Potassium 4.1 mmol/L (3.5-5.1); Sodium 138 mmol/L (136-145); Total Protein 7.2 g/dL (6.4-8.2); Uric Acid 3.8 mg/dL (3.5-7.2)
[2020-03-27 12:50] LABS: Absolute Basophil Count 0.13 10^3/uL (0.0-0.2); Absolute Eosinophil Count 0.26 10^3/uL (0.0-0.7); Absolute Lymphocyte Count 112.72 10^3/uL (1.2-3.4); Absolute Monocyte Count 1.95 10^3/uL (0.1-0.8)
[2020-03-27 12:52] LABS: Lymphocytes % 86.7
[2020-03-27 12:53] LABS: Diff Comment Manual Differential; Polychromasia Present
[2020-03-27 12:54] LABS: Poikilocytes 1+
[2020-03-27 13:00] LABS: Absolute Neutrophil Count 14.17 10^3/uL (1.2-6.7); Platelet Count 842 10^3/uL (130-400); WBC 130.01 10^3/uL (4.4-10.8)
== END 2020-04-01 23:59 | disposition home or self-care (01) ==
LOC: INF 01:25
PROVIDERS: Internal Medicine; PCP Emergency Medicine; Visit Provider Nurse Practitioner Acute Care
DX: C91.10 Chronic lymphocytic leukemia of B-cell type not having achieved remission (principal); E86.0 Dehydration
CPT/HCPCS: 36415; 80053; 96360; 96361; 84550; 85025

== ENCOUNTER 2020-07-31 11:05 | Outpatient (REF) | payer MEDICAID, SELFPAY ==
[2020-07-31 13:35] LABS: Abs Immature Grans 0.03 10^3/uL (0.0-0.06); Absolute Basophil Count 0.03 10^3/uL (0.0-0.2); Absolute Eosinophil Count 0.01 10^3/uL (0.0-0.7); Absolute Lymphocyte Count 0.99 10^3/uL (1.2-3.4); Absolute Monocyte Count 1.21 10^3/uL (0.1-0.8); Absolute Neutrophil Count 7.52 10^3/uL (1.2-6.7); Basophils % 0.3; Eosinophils % 0.1; HCT 47.1 % (40.0-50.0); HGB 15.2 g/dL (13.5-17.5); Immature Grans % 0.3; Lymphocytes % 10.1; MCH 29.4 pg (27.0-33.0); MCHC 32.3 % (32.0-36.0); MCV 91.1 fL (80-95); MPV 9.6 fL (8.0-11.0); Monocytes % 12.4; Neutrophils % 76.8; Nucleated RBC 0 %; Platelet Count 392 10^3/uL (130-400); RBC 5.17 10^6/uL (4.36-5.78); RDW 15.1 % (11.8-14.1); RDW-SD 50.7 fL; WBC 9.79 10^3/uL (4.4-10.8)
[2020-07-31 13:55] LABS: ALT 111 U/L (16-63); AST 68 U/L (15-37); Albumin 3.8 g/dL (3.4-5.0); Alkaline Phosphatase 105 U/L (46-116); Anion Gap 4.2 mmol/L (3-11); BUN 15 mg/dL (7-18); Bilirubin, Total 0.8 mg/dL (0.2-1.0); CO2 26.8 mmol/L (21.0-32.0); CREATININE 1.2 mg/dL (0.70-1.30); Calcium 9.7 mg/dL (8.5-10.1); Chloride 104 mmol/L (98-107); Glucose 110 mg/dL (74-106); Potassium 4.2 mmol/L (3.5-5.1); Sodium 135 mmol/L (136-145); TSH 1.84 uIU/mL (0.36-3.74); Total Protein 7.5 g/dL (6.4-8.2)
== END 2020-07-31 11:06 | disposition home or self-care (01) ==
LOC: LBN 11:05
PROVIDERS: PCP Emergency Medicine; Visit Provider Emergency Medicine
DX: C91.90 Lymphoid leukemia, unspecified not having achieved remission (principal); I10 Essential (primary) hypertension; E03.9 Hypothyroidism, unspecified; R00.0 Tachycardia, unspecified
CPT/HCPCS: 80053; 84443; 85025

== ENCOUNTER 2020-08-01 12:16 | Outpatient (RCR) | payer MEDICAID, SELFPAY ==
--- NOTE | 2020-08-01 15:00 | HOLTER_ITS ---
APPROVED REPORT Exam Type: HOLTER MONITOR APPLICATION Reason for Test: unexplained tachycardia Patient Location: O Conclusion This is a 24-hour monitor order for indication of tachycardia. Patient was in normal sinus rhythm for the majority of the recording with an average heart rate of 99 bpm (71???142). There was normal diurnal response though the patient was in sinus tachycardia for a good portion of waking hours. There were no episodes of ventricular tachycardia and rare PVCs. There were no episodes of supraventricular tachycardia and rare PACs. There were no episodes of atrial fibrillation, no pauses greater than 3 seconds and no evidence of hi gh degree heart block. There were multiple patient triggered events associated with sinus tachycardia as well as a PVC coupl et.
== END 2020-08-30 23:59 | disposition home or self-care (01) ==
LOC: RT 12:16
PROVIDERS: PCP Emergency Medicine; Visit Provider Emergency Medicine
DX: R00.0 Tachycardia, unspecified (principal); I49.3 Ventricular premature depolarization
CPT/HCPCS: 93225; 93226

== ENCOUNTER 2022-03-05 02:59 | Outpatient (CLI) | payer MEDICARE, MEDICAID, SELFPAY ==
[2022-03-05 12:54] LABS: ALT 52 U/L (16-63); AST 34 U/L (15-37); Albumin 4.1 g/dL (3.4-5.0); Alkaline Phosphatase 100 U/L (46-116); Anion Gap 8.6 mmol/L (3-11); BUN 15 mg/dL (7-18); Bilirubin, Total 1.2 mg/dL (0.2-1.0); CO2 26.4 mmol/L (21.0-32.0); CREATININE 1.2 mg/dL (0.70-1.30); Calcium 9.4 mg/dL (8.5-10.1); Chloride 105 mmol/L (98-107); Glucose 137 mg/dL (74-106); Potassium 3.6 mmol/L (3.5-5.1); Sodium 140 mmol/L (136-145); Total Protein 7.7 g/dL (6.4-8.2); Uric Acid 3.9 mg/dL (3.5-7.2)
[2022-03-05 12:55] LABS: HCT 45.1 % (40.0-50.0); HGB 15.5 g/dL (13.5-17.5); MCH 33.3 pg (27.0-33.0); MCHC 34.4 % (32.0-36.0); MCV 97 fL (80-95); Platelet Count 337 10^3/uL (130-400); RBC 4.66 10^6/uL (4.36-5.78); RDW-SD 50.7 fL; WBC 6.81 10^3/uL (4.4-10.8)
[2022-03-06 10:35] LABS: Lab Add On Test DONE
[2022-03-06 10:49] LABS: Hemoglobin A1C 5.7 % (<5.7)
== END 2022-03-05 03:00 | disposition home or self-care (01) ==
LOC: LOS 02:59
PROVIDERS: PCP Family Medicine; Visit Provider Family Medicine
DX: R53.83 Other fatigue (principal); M10.072 Idiopathic gout, left ankle and foot; R10.9 Unspecified abdominal pain; R73.9 Hyperglycemia, unspecified
CPT/HCPCS: 36415; 80053; 85027; 83036; 84550

== ENCOUNTER 2023-07-15 03:06 | Outpatient (CLI) | payer MEDICARE, SELFPAY ==
[2023-07-15 13:59] LABS: Hemoglobin A1C 5.7 % (<5.7)
== END 2023-07-15 03:07 | disposition home or self-care (01) ==
LOC: LBO 03:06
PROVIDERS: PCP Family Medicine; Visit Provider Family Medicine
DX: R73.9 Hyperglycemia, unspecified (principal)
CPT/HCPCS: 36415; 83036